=== PATIENT | female | born 1955 | race Caucasian/White ===

== ENCOUNTER → 2022-04-09 | Day surgery (SDC) | payer MEDICARE ==
[~2022-04-09] MED LIST: Lactated Ringers 1,000 ML IV SCH; Midazolam 1 MG/ML 2 ML SDV ONE; Propofol 200 MG/20 ML SDV ONE; fentaNYL 100 MCG/2 ML SDV ONE
== END ==
LOC: JP.SDS 06:00
PROVIDERS: ATTEND Family Medicine
DX: Z12.11 Encounter for screening for malignant neoplasm of colon (principal); Z80.0 Family history of malignant neoplasm of digestive organs; Z98.890 Other specified postprocedural states
CPT/HCPCS: G0105; J2250; J2704; J3010; J7120